=== PATIENT | female | born 1935 | race Caucasian/White ===

== ENCOUNTER 2018-12-28 16:38 | Inpatient (IN) | payer MEDICARE ==
[~2018-12-28] VITALS: Ht 154.9 cm; Wt 62.1 kg
[2018-12-28] MEDS: ALBUTEROL SULF 0.083% NEB SOLN 3 ML NEB NEB SCH (00:30)
[2018-12-28] MEDS: SODIUM CHLORIDE 0.9% 1000ML 1,000 ML IV SCH (01:45)
[~2018-12-28 16:38] MED LIST: ACETAMINOPHEN500 M1 PO; ALEVE220 M1 PO; AMLODIPINE BESYL5 MG PO; ATORVASTATIN CA20 MG; CALTRATE 600 W1 EACH; CENTRUM SILVER1 EAC1; DIOVAN160 MG PO; EXFORGE 5-3201 EACH; FISH OIL 1,2001 EACH; FLUTICASONE PRO16 GM; FUROSEMIDE40 MG PO; LATANOPROST2.5 ML; LEVOTHYROXINE75 MCG; LUMIGAN2.5 M1 OP; MILK OF MA400 MG/5 M; PROBIOTIC; [UNRECOGNIZED DRUG - OTHER]
[2018-12-28] MEDS ORDERED: ALBUTEROL/IPRATROPIUM 3 ML NEB NEB ONE (17:45)
--- NOTE | 2018-12-28 18:03 | Diagnostic Imaging Report ---
EXAMINATION: PA and lateral views of the chest. COMPARISON: August 10, 2016 CLINICAL HISTORY: Pneumonia, shortness of breath DISCUSSION: Lines/tubes: None. Lungs: Increased interstitial markings predominantly in the right lower lung. No consolidative pneumonia Pleura: No pleural effusion or pneumothorax. Heart and mediastinum: The cardiomediastinal silhouette is normal. Bones and soft tissues: No acute bony abnormalities. IMPRESSION: Probable interstitial lung disease Signed by: Dr. Francisco Robledo M.D. on 12/28/2018 6:00 PM
[2018-12-28 18:25] LABS: HEMATOCRIT 39.6 % (34.2-44.1); HEMOGLOBIN 12.6 g/dL (12.0-16.0); LYMPHOCYTES % 2.2 % (18.0-39.1); MEAN CORPUSCULAR HEMOGLOBIN 28.8 pg (28-32); MEAN CORPUSCULAR HGB CONC 31.8 g/dL (31-35); MEAN CORPUSCULAR VOLUME 90.6 fL (81-99); MONOCYTES % 0.8 % (4.4-11.3); NEUTROPHILS % 5.9 % (38.7-80.0); PLATELET COUNT 336 x10e3/uL (140-360); RED BLOOD COUNT 4.37 x10e6/uL (3.6-5.1); RED CELL DISTRIBUTION WIDTH 15.1 % (11.7-14.4)
[2018-12-28 18:26] LABS: EOSINOPHILS % 0.2 % (0.0-6.0)
[2018-12-28 18:49] LABS: ANION GAP 17.7 mmol/L (8-16); CALCIUM 9.6 mg/dL (8.4-10.2); CREATININE, SERUM 1.44 mg/dL (0.57-1.11); POTASSIUM 3.7 mmol/L (3.5-5.1)
[2018-12-28 18:50] LABS: ALBUMIN 3.1 g/dL (3.5-5.0); ALBUMIN/GLOBULIN RATIO 0.7 (0.8-2.0)
[2018-12-28] MEDS ORDERED: ALBUTEROL/IPRATROPIUM 3 ML NEB NEB NR (19:15)
--- NOTE | 2018-12-28 19:33 | NUR ---
report to tyrell
[2018-12-28] MEDS ORDERED: ACETAMINOPHEN 325 MG TAB PO NR (20:00)
[2018-12-28] MEDS ORDERED: AZITHROMYCIN 500MG/NS 250 ML 250 ML IV SCH (20:00)
[2018-12-28] MEDS ORDERED: CEFTRIAXONE SOD 1 GM/NS 50 ML 50 ML IV SCH (20:00)
[2018-12-28 20:04] LABS: ABG HCO3 25 mmol/L (23-28); ABG PCO2 31 mmHg (41-51); ABG PH 7.51 (7.31-7.41); ABG PO2 66 mmHg (80-105)
[2018-12-28] MEDS ORDERED: METHYLPREDNISOLONE SOD SUCC 125 MG/2ML VIAL IV ONE (20:15)
[2018-12-28] MEDS ORDERED: SODIUM CHLORIDE 0.9% 1000ML 1,000 ML IV ONE (20:15)
[2018-12-28] MEDS ORDERED: ACETAMINOPHEN 325 MG TAB PO PRN (20:30)
[2018-12-28] MEDS ORDERED: ONDANSETRON HCL INJ 2MG/ML 2ML 2 MG/ML VIAL IV PRN (20:30)
--- OUTSIDE RECORDS SUMMARY | 2018-12-28 20:41 | XMS REPORT ---
Author Author [facility] Address Unknown Phone Unavailable Care Team Providers Care Medical Records Technician Name Role Phone César PETIT Unavailable Unavailable Problems This patient has no known problems. Allergies, Adverse Reactions, Alerts This patient has no known allergies or adverse reactions. Medications This patient has no known medications. Results Test Description Test Time Test Comments Text Results Atomic Results Result Comments CHEST 2 VIEWS 2018-12-28 17:57:00 [place] [address] Patient Name: NELSON ROONEY MR #: [id number] : 1935 Age/Sex: 83/F Req #: [id number] Adm Physician: Ordered by: RONAN PETIT MD Report #: [id number] Location: ER Room/Bed: Procedure: [id number] DX/CHEST 2 VIEWS Exam Date: 12/28/18 Exam Time: 1750 REPORT STATUS: Signed EXAMINATION: PA and lateral views of the chest. COMP ARISON: August 10, 2016 CLINICAL HISTORY: Pneumonia, shortness of breath DISCUSSION: Lines/tubes: None. Lungs: Increased interstitial markings predominantly in the right lower lung. No consolidative pneumonia Pleura: No pleural effusion or pneumothorax. Heart and mediastinum: The cardiomediastinal silhouette is normal. Bones and soft tissues: No acute bony abnormalities. IMPRESSION: Probable interstitial lung disease Signed by: Dr. Swati Ibrahim M.D. on 12/28/2018 6:00 PM Dictated By: SWATI IBRAHIM MD 99 Transcribed By: NILA on 12/28/181799 COPY TO: RONAN PETIT MD
[2018-12-28 23:01] VITALS: BP 155/60
[2018-12-28 23:15] VITALS: BP 155/60
[2018-12-29] VITALS: BP 111/40
[2018-12-29] MEDS: METHYLPREDNISOLONE SOD SUCC 40 MG/ML VIAL 1ML IV SCH ×5 (00:24→22:00)
[2018-12-29] MEDS: IPRATROPIUM BROMIDE 0.02% 2.5 ML NEB NEB SCH ×4 (01:00→19:40)
[2018-12-29] MEDS: SODIUM CHLORIDE 0.9% 1000ML 1,000 ML IV SCH ×4 (01:45→19:56)
[2018-12-29] MEDS: ALBUTEROL SULF 0.083% NEB SOLN 3 ML NEB NEB SCH ×5 (03:30→19:40)
[2018-12-29 04:00] VITALS: BP 146/65
[2018-12-29] MEDS: LEVOTHYROXINE SODIUM 75 MCG TAB PO SCH (05:55)
[2018-12-29] MEDS ORDERED: LEVOTHYROXINE SODIUM 75 MCG TAB PO SCH ×2 (06:00→09:00)
[2018-12-29] MEDS ORDERED: LEVOTHYROXINE SODIUM 50 MCG TAB PO SCH (06:00)
[2018-12-29 06:03] LABS: BASOPHILS % 0.2 % (0.0-1.0); HEMATOCRIT 35.9 % (34.2-44.1); HEMOGLOBIN 11.6 g/dL (12.0-16.0); LYMPHOCYTES # (AUTO) 1.1 (1.0-3.2); LYMPHOCYTES % 17.4 % (18.0-39.1); MEAN CORPUSCULAR HEMOGLOBIN 29.1 pg (28-32); MEAN CORPUSCULAR HGB CONC 32.3 g/dL (31-35); MEAN CORPUSCULAR VOLUME 90.2 fL (81-99); MONOCYTES # (AUTO) 0.1 (0.2-0.8); MONOCYTES % 1.6 % (4.4-11.3); NEUTROPHILS # (AUTO) 5.1 (2.1-6.9); NEUTROPHILS % 79.1 % (38.7-80.0); PLATELET COUNT 309 x10e3/uL (140-360); RED BLOOD COUNT 3.98 x10e6/uL (3.6-5.1)
[2018-12-29 06:31] LABS: CREATINE KINASE MB 1.9 ng/mL (0-5.0)
[2018-12-29 07:11] LABS: ALBUMIN 2.6 g/dL (3.5-5.0); ALBUMIN/GLOBULIN RATIO 0.7 (0.8-2.0); CALCIUM 8.4 mg/dL (8.4-10.2); CREATININE, SERUM 1.06 mg/dL (0.57-1.11)
[2018-12-29 07:45] VITALS: BP 120/55
[2018-12-29 07:48] LABS: ANION GAP 16.6 mmol/L (8-16); POTASSIUM 3.6 mmol/L (3.5-5.1)
[2018-12-29] MEDS: LACTOBACILLUS ACIDOPHILUS CAPSULE PO SCH ×2 (08:57→08:58)
[2018-12-29] MEDS: FUROSEMIDE 40 MG TAB PO SCH (08:57)
[2018-12-29] MEDS: AMLODIPINE BESYLATE 5 MG TAB PO SCH (08:57)
[2018-12-29] MEDS: VALSARTAN 160 MG TAB PO SCH (08:58)
[2018-12-29] MEDS ORDERED: BIMATOPROST(OPTH) 2.5 ML BOTTLE OP SCH (09:00)
[2018-12-29] MEDS ORDERED: ONDANSETRON HCL 4 MG ORAL DISINTEGRATING TAB PO PRN (09:45)
--- NOTE | 2018-12-29 10:50 | NUR ---
SOCIAL WORK INITIAL ASSESSMENT Hydraulic Blocker to bedside to discuss plan of care with patient/family. CM/SW role and care transitions discussed. Anticipated discharge plan discussed along with duration of care. CM/SW discussed patients right to make decisions in care. CM/SW work hours given. Patient lives: IN HOME WITH HER Admit/Transfer: VIA ED POA/Emergency contact: AND DAUGHTER ON FILE Current/Previous Home Health: NONE PCP/Follow-up Care: Valentina MCGOVERN Current/Previous DME: [facility] Other Services: NONE Employment Status: RETIRED Areas of Concerns: WORRIED ABOUT MONEY AND COST HAVE JUST SPENT LARGE AMOUNTS OF MONEY ON [place] FOR HOME TO BE REBUILT Referral Needs: GAVE INFORMATION FOR [employer] TO ASSIST WITH LEGAL NEEDS TO ASSIST IN THE COMMUNITY Education Needs: NONE IMM/IBANEZ given and signed (if applicable): UPON ADMISSION Goal for discharge: RETURN HOME CM/SW left business card at the bedside with contact information. Name and number was also written on the patients whiteboard. Patient verbalized understanding of discussion. CM will follow-up with ongoing discharge and transition of care needs.
--- NOTE | 2018-12-29 12:38 | Diagnostic Imaging Report ---
EXAMINATION: CT scan of the chest without contrast. TECHNIQUE: Spiral CT images of the chest were performed from the lung apices to the level of the adrenal glands. No intravenous contrast was administered per referring physician request. Coronal and sagittal reformatted images were obtained. COMPARISON: 12/28/2018, CT chest 08/20/2016 report was reviewed. No images available. CLINICAL HISTORY:Cough, shortness of breath DISCUSSION: ABSENCE OF INTRAVENOUS CONTRAST DECREASES SENSITIVITY FOR DETECTION OF FOCAL LESIONS AND VASCULAR PATHOLOGY. LINES/TUBES: None. LUNGS AND AIRWAYS: Lower lung zone predominant juxtapleural coarse reticulation, and interlobular septal thickening, groundglass opacities, and bronchiectasis. The right middle and lower lobes are affected to the greatest extent. Superimposed patchy groundglass opacities with tree-in-bud nodules in the right upper and lower lobes. Filling defects in several segmental right lower lobe bronchi compatible with mucous plugging similar findings in multiple left lower lobe bronchi. PLEURA: No pneumothorax or pleural effusions. HEART AND MEDIASTINUM: Thyroid gland appears normal. Atherosclerotic calcification of the thoracic aorta, great vessel origins, and coronary arteries without ectasia or aneurysmal dilatation. Pulmonary outflow tract is of normal caliber. Heart size is normal without pericardial effusion. LYMPH NODES: No axillary, hilar, or mediastinal lymphadenopathy. Calcified right paratracheal mediastinal lymph node compatible with prior granulomatous infection. Bilateral calcified hilar lymph nodes. ABDOMEN: Dystrophic calcification in hepatic segment 8. Spleen, adrenals, and pancreas otherwise unremarkable with the exception of a small calcified splenic granuloma. BONES AND SOFT TISSUES: No osseous destructive lesions. Multilevel degenerative disc changes of the lower cervical and thoracic spine with diffuse osteopenia. No focal soft tissue abnormalities. Coarse calcifications in the left breast. IMPRESSION: Lower lung zone predominant coarse reticulation and bronchiectasis compatible with interstitial lung disease, likely NSIP, which may be idiopathic, related to underlying collagen vascular disease, or drug toxicities. Superimposed tree-in-bud and groundglass opacities in the right upper and lower lobes suggest superimposed pneumonia. Short-term follow-up CT chest (3-6 months) is suggested to document resolution. Mucous plugging/aspiration in the bilateral dependent lower lobes. Atherosclerotic vascular disease. Signed by: Dr. Maulik Cornejo M.D. on 12/29/2018 12:35 PM
[2018-12-29] MEDS: CEPACOL SORE THROAT LOZENGES PO PRN ×2 (12:46→22:00)
[2018-12-29 13:00] VITALS: BP 136/65
[2018-12-29 14:15] LABS: CREATINE KINASE MB 3.5 ng/mL (0-5.0)
[2018-12-29 15:45] VITALS: BP 157/65
--- NOTE | 2018-12-29 18:57 | Consultation ---
DATE OF CONSULTATION: 12/29/2018 CARDIAC CONSULTATION REASON FOR CONSULTATION: Severe shortness of breath. HISTORY OF PRESENT ILLNESS: An 83-year-old lady, who is now with longstanding history of hypertension, peripheral arterial vascular disease, hypercholesteremia, positive family history of coronary artery disease, and mild renal insufficiency. The patient does have long-standing history of shortness of breath on exertion and easy fatigability. Her cardiac catheterization, which was done on 12/30/2017 showed mild CAD and this was done because of her severe shortness of breath. In fact, couple of years ago or so, she was seen by Pulmonary Service, Dr. Chan and she had a bronchoscopy and right lung biopsy. At that time, she was diagnosed with bronchiectasis effecting mainly the right lung. The patient also noted to have peripheral arterial vascular disease, status post PCI and intervention of her right lower extremity on 07/03/2018. This was for the right superficial femoral and right popliteal arteries. The patient's main symptoms are shortness of breath on exertion progressively worse. For the last 3-4 weeks, she is unable to breathe and she is having continuous cough. She does have severe shortness of breath. She was seen by Dr. Ortiz Bowie, her PCP. She had antibiotics with chest x-ray, subsequent CT scan, and she continued to have severe shortness of breath and cough, she came to the emergency room. Her chest x-ray showed pulmonary fibrosis of the right lung mainly. She is supposed to have CT scan to check on that. The patient's main symptoms are repeated cough, shortness of breath on exertion, and easy fatigability. In the past, she was advised by Pulmonary Service GERD to be on large dose of Protonix, but she is not taking it. CURRENT MEDICATIONS: Aspirin 81 mg a day, Plavix 75 mg a day, metoprolol succinate 25 mg a day, valsartan 320 mg a day, amlodipine 5 mg a day, Lasix 20 mg a day, levothyroxine 75 mcg a day, multivitamins, and duloxetine 30 mg a day. ALLERGIES: DEMEROL, ASPIRIN, MYRBETRIQ, AND STATINS. PAST MEDICAL HISTORY: 1. Status post peripheral angiogram of the right superficial femoral and right popliteal arteries on 06/22/2018. 2. Status post stenting of the right distal superficial femoral artery in 2017. 3. Hypertension. 4. Hypothyroidism. 5. Hypercholesteremia. 6. Varicose veins. 7. Chronic lung disease. 8. Migraine. 9. Degenerative joint disease of the back "herniated disk of the back.". 10. Hay fever. 11. Chronic constipation and irritable bowel syndrome. 12. Palpitation. 13. Glaucoma. 14. History of H pylori. 15. Mild renal insufficiency. 16. Appendectomy. 17. Stomach surgery. 18. Hysterectomy. 19. Cystocele repair. SOCIAL HISTORY: She is . She is a nonsmoker. She is non-alcohol drinker. REVIEW OF SYSTEMS: GENERAL: Weakness with failure to thrive. HEENT: Migraines, headache, congestion. PULMONARY: Shortness of breath on minimal activity. CARDIAC: No angina, mainly severe shortness of breath on exertion. GI: Remarkable for severe GERD symptoms and dysphagia, constipation, right lower quadrant pain chronically. HEMATOLOGY: No easy bruising or bleeding. : Increased frequency and incontinence. MUSCULOSKELETAL: Back pain, knee pain, and muscle aches. PERIPHERAL VASCULAR: No claudication, but leg edema. NEUROLOGICAL: Awake, alert, and oriented. PSYCHIATRIC: There are no localized symptoms. PHYSICAL EXAMINATION: VITAL SIGNS: Height of 5 feet 2 inches, weight of 144 pounds, blood pressure 130/80, heart rate 70, and respiratory rate 18. HEENT: Pupils are reactive. NECK: No elevation of jugular venous pulsation. CHEST: Decreased lung expansion consistent with chronic lung disease with coarse crackles. HEART: PMI 5th intercostal space. Normal first and second heart sounds. ABDOMEN: Soft with good bowel sounds. EXTREMITIES: No signs of clubbing. No edema. LABORATORY DATA: EKG showing sinus tachycardia, low voltage, nonspecific ST changes. White blood cell count of 9.2, hemoglobin 12.6, hematocrit 40%, and platelet count of ABG showed a pH of 7.51, pCO2 of 51, and pO2 of 66. normal. BUN of 16 and creatinine of 1.06. Chest x-ray, changes in the right lower base. IMPRESSION AND PLAN: 1. Chronic lung disease, suspicious for bronchiectasis and pulmonary fibrosis. 2. Severe gastroesophageal reflux disease, probably playing a role. 3. Shortness of breath on exertion, which is very severe. 4. Chronic cough. 5. Severe peripheral arterial vascular disease. 6. Mixed hyperlipidemia. 7. Varicose veins. 8. Hypothyroidism. Cardiac chino, my recommendation would be as follow: 1. Checking BMP. 2. Checking an echocardiogram. 3. Continuation of her small dose of diuretics as well as Plavix. 4. CT scan of chest is in progress. Pulmonary will evaluate the patient. Depending on the results of this initial investigations and the patient's course, further steps to be done. MD EMERALD Perez/MODL /[id number]
[2018-12-29 20:00] VITALS: BP 139/54
[2018-12-29] MEDS: BIMATOPROST(OPTH) 2.5 ML BOTTLE OP SCH (20:31)
--- NOTE | 2018-12-29 20:32 | Consultation ---
DATE OF CONSULTATION: 12/29/2018 PULMONARY MEDICINE CONSULTATION REASON FOR REFERRAL: Interstitial lung disease. HISTORY OF PRESENT ILLNESS: Ms. Jamil is a pleasant 83-year-old female with interstitial lung disease. The patient with a pulmonary history of excessive bronchitis spells when she was a young girl starting at age 7 that she can remember. The patient also had slightly increased cough compared to other people, but she was never diagnosed with any special condition. Later on in about 2014, she had repeat evaluation where her lung condition was noted to be probably with some chronicity. The patient with a CT chest in our computer system from August 20, 2016, demonstrating significant/moderate bronchiectasis tubular. The patient with faint reticulation and cystic spaces being formed usually in subpleural manner at that time. The patient was having worsening cough recently. The patient came to emergency room. CT chest demonstrated same coarse reticulation bronchiectasis, but there is increased ground-glass opacities. I am consulted. No history of asthma. There are intermittent allergies. She did allergy prick testing in 1960s, which was positive. No overt GERD, but she did get a trial of Nexium with no significant improvement that she can site. Her cough is dry. She lives with 3 cats. No other clear exposures that she can think of. PAST MEDICAL HISTORY: 1. Hypertension. 2. Hypothyroidism. 3. Hyperlipidemia. 4. High cholesterol. 5. Glaucoma. 6. IBS. 7. CKD. 8. PVD. 9. Appendectomy. 10. Back surgery. 11. Hernia repair. 12. Hysterectomy. 13. Tonsillectomy. MEDICATIONS: Medicine list reviewed per the chart record. ALLERGIES: 1. CHLORPHENIRAMINE. 2. DEXTROMETHORPHAN. 3. EPINEPHRINE. 4. ACETAMINOPHEN. 5. ASPIRIN. 6. CODEINE. 7. GUAIFENESIN. SOCIAL HISTORY: No smoking. No drinking. No drugs. The patient lives with . FAMILY HISTORY: Noncontributory. REVIEW OF SYSTEMS: GENERAL: No weight changes. OPHTHALMOLOGIC: No double vision. ENT: No mouth ulcers. PULMONARY: No asthma. No hemoptysis. CARDIAC: No heart attacks. GI: No constipation. GENITOURINARY: No blood in urine. NEUROLOGIC: No seizures. PSYCHIATRIC: No depression. MUSCULOSKELETAL: Mild arthritis, osteoarthritis kind she says. PSYCHIATRIC: No depression. OBJECTIVE: VITAL SIGNS: Afebrile, vital signs noted and reviewed per the chart record. GENERAL: In no acute distress, but intermittent cough noted. HEENT: Normocephalic and atraumatic. NECK: Supple. Throat midline. LUNGS: Bilateral air entry, few rhonchi, [id number]. CARDIOVASCULAR: S1, S2. No murmurs, rubs, or gallops. ABDOMEN: Soft and nontender. EXTREMITIES: No clubbing, no cyanosis, no edema. INTEGUMENT: No rash. No purpura. LABORATORY DATA: 16 BUN and 1.1 creatinine. 3.6 potassium and 6.4 white count. 36 hematocrit and 209 platelets. IMPRESSION: 1. Bronchiectatic lung disease with exacerbation. 2. Bilateral pneumonitis either progression of chronic interstitial lung disease or possible superimposed infection such as mycobacteria or other. 3. Intermittent allergies. 4. Possible gastroesophageal reflux disease, although no high evidence. 5. Reported possible mild exposure to asbestos with fall from the roof. 6. Hypothyroidism. 7. Hyperlipidemia. 8. Hypertension. 9. Irritable bowel syndrome. 10. Chronic kidney disease. 11. Peripheral vascular disease. PLAN AND RECOMMENDATIONS: Treat for acute pneumonia for now. Check sputum culture. Check AFB sputum culture. Our review from the outside records from other close hospital. The patient had a bronchoscopy in the past, which reportedly did not have findings that contributed to diagnosis. This condition is worsening over the last 3 years, so the patient will need close follow up. Given some of the issues beginning when she was young, it could be reasonable to think about alpha-1 antitrypsin levels or cystic fibrosis evaluation for mild phenotype. Antibiotics for now. Thank you very much Dr. Morel for allowing me a chance to participate in care of Ms. Jamil. Do not hesitate to contact me if I can help in any way. MD JOVANA Orlando/MYKE /[id number]
[2018-12-29] MEDS ORDERED: RESTASIS1 EACH OP (20:33)
[2018-12-29] MEDS: CYCLOSPORINE OP SCH (21:00)
[2018-12-30] VITALS (8 sets, daily range): BP systolic 103–151; BP diastolic 38–68
[2018-12-30] MEDS: ALBUTEROL SULF 0.083% NEB SOLN 3 ML NEB NEB SCH ×7 (00:15→19:00)
[2018-12-30] MEDS: METHYLPREDNISOLONE SOD SUCC 40 MG/ML VIAL 1ML IV SCH ×4 (00:30→17:48)
[2018-12-30] MEDS: IPRATROPIUM BROMIDE 0.02% 2.5 ML NEB NEB SCH ×4 (00:30→19:00)
[2018-12-30] MEDS: SODIUM CHLORIDE 0.9% 1000ML 1,000 ML IV SCH (02:14)
[2018-12-30] MEDS: LEVOTHYROXINE SODIUM 75 MCG TAB PO SCH (06:23)
--- NOTE | 2018-12-30 06:31 | NUR ---
Dr. Morel requesting consult for Dr. Arana for dysphagia. Spoke to Dr. Arana, he will see patient Tuesday.
[2018-12-30] MEDS: AZITHROMYCIN 500MG/NS 250 ML 250 ML IV SCH (08:21)
[2018-12-30] MEDS: CEFTRIAXONE SOD 1 GM/NS 50 ML 50 ML IV SCH (08:21)
[2018-12-30] MEDS: FUROSEMIDE 40 MG TAB PO SCH (08:23)
[2018-12-30] MEDS: LACTOBACILLUS ACIDOPHILUS CAPSULE PO SCH (08:23)
[2018-12-30] MEDS: AMLODIPINE BESYLATE 5 MG TAB PO SCH (08:23)
[2018-12-30] MEDS: VALSARTAN 160 MG TAB PO SCH (08:24)
[2018-12-30] MEDS: CYCLOSPORINE OP SCH ×2 (08:32→20:00)
[2018-12-30] MEDS ORDERED: BIMATOPROST(OPTH) 2.5 ML BOTTLE OP SCH (09:00)
--- NOTE | 2018-12-30 17:22 | Progress Note ---
DATE: 12/30/2018 Pulmonary Medicine Progress Note SUBJECTIVE: Ms. Jamil was seen and examined at bedside. The patient had medical records reviewed. Previous bronchoscopy done with low cellularity white cells, yet 25% lymphocytes were noted with no large leukocyte predominant PMNs. The patient . The patient is eating, although she has worst breathing she says and does cough a lot. REVIEW OF SYSTEMS: No headaches, no bleeding. OBJECTIVE: VITAL SIGNS: Afebrile. Vital signs noted per the chart record. GENERAL: No acute distress. Alert and calm. HEENT: Normocephalic, atraumatic. NECK: Supple. Throat midline. LUNGS: Bilateral air entry with coarse rhonchi bilaterally. CARDIOVASCULAR: S1, S2. No murmurs, rubs, or gallops. ABDOMEN: Soft, nontender. EXTREMITIES: No clubbing, no cyanosis. There is no edema. INTEGUMENT: No rash or purpura. LABORATORY DATA: 3.6 potassium, 1.0 creatinine. 6 white count, 35 hematocrit, 309 platelets. IMPRESSION AND PLAN: 1. Bilateral pneumonitis. 2. Underlying chronic interstitial lung disease. 3. History of bronchitis, multiple during her . 4. Weakness and debility. 5. for acute bacterial pneumonia. Await sputum for bacteria. Await mycobacterial sputum specimens. If the patient does not get better on conventional antibiotics, we will consider repeat bronchoscopy for infection versus surgical lung biopsy. A CAT scan clearly showed progression of her lung disease. We will follow along closely. MD JOVANA Orlando/MODL /[id number]
[2018-12-30] MEDS ORDERED: CEFTRIAXONE SOD 1 GM/NS 50 ML 50 ML IV SCH (20:00)
[2018-12-30] MEDS: BIMATOPROST(OPTH) 2.5 ML BOTTLE OP SCH (20:36)
[2018-12-30] MEDS ORDERED: AZITHROMYCIN 500MG/NS 250 ML 250 ML IV SCH (21:00)
[2018-12-31] VITALS (8 sets, daily range): BP systolic 121–167; BP diastolic 52–74
[2018-12-31] MEDS: METHYLPREDNISOLONE SOD SUCC 40 MG/ML VIAL 1ML IV SCH ×4 (00:10→17:12)
[2018-12-31] MEDS: IPRATROPIUM BROMIDE 0.02% 2.5 ML NEB NEB SCH ×4 (00:15→18:50)
--- NOTE | 2018-12-31 02:24 | Progress Note ---
DATE: SUBJECTIVE: No new complaints overnight, still has cough and congestion. OBJECTIVE: VITAL SIGNS: Temperature 98.0, pulse 80, blood pressure 150/64, saturations 99%. GENERAL: No apparent distress. CARDIOVASCULAR: Regular rate and rhythm. LUNGS: Rhonchi ABDOMEN: Good bowel sounds. Soft, nontender. EXTREMITIES: No clubbing or cyanosis. NEUROLOGIC: Nonfocal. ASSESSMENT AND PLAN: 1. Pneumonia secondary to bronchiectasis. Continue with antibiotics per Pulmonary. 2. Interstitial lung disease. Continue with current care. 3. Dysphagia. GI has been consulted. 4. Hypertension. Continue with current care and monitoring. 5. Hypothyroidism. Continue with her medication. 6. Diabetes. Continue with current care. Please see hospital chart for details. MD FAZAL Solis/MYKE /[id number]
[2018-12-31] MEDS: ALBUTEROL SULF 0.083% NEB SOLN 3 ML NEB NEB SCH ×6 (03:00→18:50)
--- NOTE | 2018-12-31 03:29 | NUR ---
Received patient from day nurse, patient is alert and oriented x 3, introduced self to patient and patient instructed to call nurses for any assistance needed, patient verbalized understanding, safety and fall precautions maintained as per hospital protocol: bed in lowest position and locked, needed items beside bed and call coppola placed close to patient, patient instructed to use it call nurses for any assistance needed, patient verbalized understanding. patient is currently stable will continue to monitor. 2000: patient is self turn encouraged to turn. 2200: patient is stable. 12/31/18: 0000: patient is stable, vitals stable. 0200: patient is stable.
[2018-12-31] MEDS: LEVOTHYROXINE SODIUM 75 MCG TAB PO SCH (06:00)
[2018-12-31] MEDS: CLOPIDOGREL BISULFATE 75 MG TAB PO SCH (08:54)
[2018-12-31] MEDS: CYCLOSPORINE OP SCH ×2 (08:54→20:00)
[2018-12-31] MEDS: AMLODIPINE BESYLATE 5 MG TAB PO SCH (08:54)
[2018-12-31] MEDS: LACTOBACILLUS ACIDOPHILUS CAPSULE PO SCH (08:54)
[2018-12-31] MEDS: CEFTRIAXONE SOD 1 GM/NS 50 ML 50 ML IV SCH (08:54)
[2018-12-31] MEDS: AZITHROMYCIN 500MG/NS 250 ML 250 ML IV SCH (08:54)
[2018-12-31] MEDS: VALSARTAN 160 MG TAB PO SCH (08:54)
[2018-12-31] MEDS: FUROSEMIDE 40 MG TAB PO SCH (08:54)
[2018-12-31] MEDS: BIMATOPROST(OPTH) 2.5 ML BOTTLE OP SCH (21:22)
--- NOTE | 2018-12-31 23:42 | Progress Note ---
DATE: 12/31/2018 Pulmonary Medicine Progress Note SUBJECTIVE: Ms. Jamil was seen and examined at bedside. She continues to have slow progress. She still retains in a significant cough. Cough still is little bothersome. Her abdomen is sore from coughing. She reports multiple bowel movements every time she urinates. An 89% oxygen saturation at this time. REVIEW OF SYSTEMS: No headaches, no bleeding. OBJECTIVE: VITAL SIGNS: Afebrile, vital signs reviewed per the chart record. GENERAL: In no acute distress, alert and calm, intermittent cough. HEENT: Normocephalic, atraumatic. NECK: Supple. Throat midline. LUNGS: Bilateral air entry, few coarse rhonchi, rare wheeze. CARDIOVASCULAR: S1, S2. No murmurs, rubs, or gallops. ABDOMEN: Soft, nontender. EXTREMITIES: No clubbing, no cyanosis. There is no edema. INTEGUMENT: No rash or purpura. IMPRESSION AND PLAN: 1. Bilateral pneumonia, evolving. 2. Underlying chronic interstitial lung disease. 3. Bronchiectasis, [id number]. 4. Reported possible gastroesophageal reflux disease. 5. Intermittent allergies. 6. Chronic kidney disease. We will check MER, rheumatoid factor, IgG level, serologic assessment for some etiologies for this interstitial lung disease. We still await sputum to be sent in and I discuss with charge nurse to help finalize this admission. Continue bronchodilators. Antibiotics. Some steroids. Continue to follow her oxygen. The patient fails to improve on therapy and has no readily available diagnosis, consideration for bronchoscopy versus surgical lung biopsy will occur. MD JOVANA Orlando/MODL /[id number]
[2019-01-01] VITALS (9 sets, daily range): BP systolic 136–170; BP diastolic 61–90
[2019-01-01] MEDS: METHYLPREDNISOLONE SOD SUCC 40 MG/ML VIAL 1ML IV SCH ×3 (00:22→20:56)
[2019-01-01] MEDS: ALBUTEROL SULF 0.083% NEB SOLN 3 ML NEB NEB SCH ×5 (03:00→19:40)
--- NOTE | 2019-01-01 05:02 | NUR ---
Received patient from day nurse, patient is alert and oriented x 3, introduced self to patient and patient instructed to call nurses for any assistance needed, patient verbalized understanding, safety and fall precautions maintained as per hospital protocol: bed in lowest position and locked, needed items beside bed and call coppola placed close to patient, patient instructed to use it call nurses for any assistance needed, patient verbalized understanding. patient was made aware about the need fpor sputum specimen, patient states she is having dry cough but will try to get nursing the sputum, patient is currently stable will continue to monitor. 2000: patient is self turn encouraged to turn. 2200: patient is stable. 12/31/18: 0000:During neb treatment, rn encouraged patient to give some sputum, she stated she does not have any, charge nurse was made aware, container for sputum is close to patient and encouraged to place it in the cup, patient is stable, vitals stable. 0200: patient is stable.
[2019-01-01 05:47] LABS: BASOPHILS # (AUTO) 0.1 (0.0-0.1); BASOPHILS % 0.5 % (0.0-1.0); HEMATOCRIT 37.2 % (34.2-44.1); HEMOGLOBIN 11.7 g/dL (12.0-16.0); LYMPHOCYTES # (AUTO) 2.4 (1.0-3.2); LYMPHOCYTES % 11.8 % (18.0-39.1); MEAN CORPUSCULAR HEMOGLOBIN 28.7 pg (28-32); MEAN CORPUSCULAR HGB CONC 31.5 g/dL (31-35); MEAN CORPUSCULAR VOLUME 91.2 fL (81-99); MONOCYTES # (AUTO) 0.6 (0.2-0.8); MONOCYTES % 2.7 % (4.4-11.3); NEUTROPHILS % 79.1 % (38.7-80.0); PLATELET COUNT 454 x10e3/uL (140-360); RED BLOOD COUNT 4.08 x10e6/uL (3.6-5.1); RED CELL DISTRIBUTION WIDTH 15.2 % (11.7-14.4)
[2019-01-01] MEDS: LEVOTHYROXINE SODIUM 75 MCG TAB PO SCH (06:10)
[2019-01-01 06:21] LABS: ALBUMIN 3.1 g/dL (3.5-5.0); ALBUMIN/GLOBULIN RATIO 0.8 (0.8-2.0); ANION GAP 18.2 mmol/L (8-16); CALCIUM 9.2 mg/dL (8.4-10.2); CREATININE, SERUM 1.13 mg/dL (0.57-1.11); POTASSIUM 3.2 mmol/L (3.5-5.1)
[2019-01-01] MEDS: IPRATROPIUM BROMIDE 0.02% 2.5 ML NEB NEB SCH ×4 (07:00→19:40)
--- NOTE | 2019-01-01 07:02 | NUR ---
patient endorsed to day nurse Yoana for continuity of care. plx follow up with sputum for afb, thanks.
[2019-01-01] MEDS: AMLODIPINE BESYLATE 5 MG TAB PO SCH (07:33)
[2019-01-01] MEDS: CEFTRIAXONE SOD 1 GM/NS 50 ML 50 ML IV SCH (07:33)
[2019-01-01] MEDS: VALSARTAN 160 MG TAB PO SCH (07:33)
[2019-01-01] MEDS: CLOPIDOGREL BISULFATE 75 MG TAB PO SCH (07:34)
[2019-01-01] MEDS: LACTOBACILLUS ACIDOPHILUS CAPSULE PO SCH ×2 (07:34→17:44)
[2019-01-01] MEDS: FUROSEMIDE 40 MG TAB PO SCH (07:36)
[2019-01-01] MEDS: CEPACOL SORE THROAT LOZENGES PO PRN (07:36)
[2019-01-01] MEDS: AZITHROMYCIN 500MG/NS 250 ML 250 ML IV SCH (08:30)
[2019-01-01] MEDS: CYCLOSPORINE OP SCH ×2 (08:30→20:00)
[2019-01-01 08:48] LABS: ANISOCYTOSIS SLIGHT; LYMPHOCYTES % (MANUAL) 11 % (19-48); METAMYELOCYTES % (MANUAL) 1 % (0-0); MONOCYTES % (MANUAL) 5 % (3.4-9.0); MYELOCYTES % (MANUAL) 1 % (0-0); NEUTROPHILS % (MANUAL) 82 % (40-74); PLATELET ESTIMATE SLIGHTLY INCREASED; PLATELET MORPHOLOGY COMMENT NORMAL
[2019-01-01] MEDS ORDERED: POTASSIUM CHLORIDE 20 MEQ TAB CR PO NR (11:00)
--- NOTE | 2019-01-01 11:44 | Diagnostic Imaging Report ---
Examination: Single AP view of the chest. COMPARISON: 12/28/2018, CT chest 12/29/2018 INDICATION: Pneumonia DISCUSSION: Lungs are well-inflated. Patchy bilateral lower lobe airspace opacities are unchanged. Stable cardiomediastinal contour. No pulmonary edema. No new consolidation or effusion. No acute osseous abnormality. IMPRESSION: Stable chest relative to 12/28/2018. No new consolidation. For further description of probable interstitial lung disease and superimposed atypical infection refer to CT chest 12/29/2018. Signed by: Dr. Maulik Cornejo M.D. on 01/01/2019 11:40 AM
--- NOTE | 2019-01-01 12:24 | Progress Note ---
DATE: 01/01/2019 Pulmonary Medicine Progress Note SUBJECTIVE: Ms. Jamil was seen and examined at bedside. The patient continues to have slow progress. She has persistent intermittent cough. The patient is being seen by nursing staff. A consistent cough often when eating or drinking. The patient denies having swallow mechanism, formally evaluated by a speech therapist in the past. Her oxygenation has improved to 98% saturation on room air FiO2. REVIEW OF SYSTEMS: No headaches, no bleeding. OBJECTIVE: VITAL SIGNS: Afebrile, vital signs noted per the chart record. GENERAL: No distress, calm, mildly anxious. HEENT: Normocephalic, atraumatic. NECK: Supple. Throat midline. LUNGS: Bilateral air entry, few rhonchi. CARDIOVASCULAR: S1, S2. No murmurs, rubs, or gallops. ABDOMEN: Soft, nontender. EXTREMITIES: No clubbing, no cyanosis. There is no edema. INTEGUMENT: No rash or purpura. LABORATORY DATA: 3.2 potassium and 1.1 creatinine. 20 white count, 37 hematocrit, and 454 platelets. IMPRESSION AND PLAN: 1. Bronchiectatic lung disease with exacerbation. 2. Bilateral pneumonitis, progressed from previous CT scan. 3. Intermittent allergies. 4. Possible gastroesophageal reflux disease, although mostly asymptomatic if so. 5. Hypothyroidism. 6. Hyperlipidemia, hypertension, irritable bowel, chronic kidney disease, and peripheral vascular disease. 7. Hypokalemia. 8. Worsening leukocytosis. We will decrease steroids today. Continue bronchodilators. Give some potassium supplement. Repeat chest x-ray to be requested to ensure the pneumonia isn't continued to worsen. Sputum was finally submitted to the lab today. We await this among other tests for consideration of need for early invasive lung biopsy which can be considered for surgical evaluation given the patient already had a bronchoscopy in the past. We will follow along closely. Repeat white count tomorrow. MD JOVANA Orlando/MODL /[id number]
[2019-01-01] MEDS ORDERED: POTASSIUM CHLORIDE 20MEQ/15ML UDC PO ONE (15:00)
--- NOTE | 2019-01-01 15:19 | Diagnostic Imaging Report ---
EXAM: Modified barium swallow with Speech Pathologist INDICATION: ^patient coughing with medicaitons and food ^20190101 ^1015 COMPARISON: None available. RADIATION DOSE: Fluoroscopy Time: 2 min Dose (Kerma) Area Product: 2.14 Gycm2 Air Kerma (AK) value has been reviewed. It is below the limits set by the Radiation Protocol Committee (RPC) committee. FINDINGS: See impression IMPRESSION: Laryngeal penetration with thin liquids only. Trace silent aspiration with thin liquids without use of a chin tuck maneuver. Refer to speech pathology report for further details and dietary recommendations. Signed by: Dr. Maulik Cornejo M.D. on 01/01/2019 3:16 PM
--- NOTE | 2019-01-01 16:45 | NUR ---
Called Dr. Moeller, made aware radiologist recommending hydration pre/post CT scan received orders to hold on CT scan.
[2019-01-01 17:43] LABS: HEMATOCRIT 39.9 % (34.2-44.1); HEMOGLOBIN 12.1 g/dL (12.0-16.0); LYMPHOCYTES # (AUTO) 3.2 (1.0-3.2); LYMPHOCYTES % 12.7 % (18.0-39.1); MEAN CORPUSCULAR HEMOGLOBIN 28.4 pg (28-32); MEAN CORPUSCULAR HGB CONC 30.3 g/dL (31-35); MEAN CORPUSCULAR VOLUME 93.7 fL (81-99); MONOCYTES # (AUTO) 1.1 (0.2-0.8); MONOCYTES % 4.6 % (4.4-11.3); NEUTROPHILS # (AUTO) 18.4 (2.1-6.9); NEUTROPHILS % 73.9 % (38.7-80.0); PLATELET COUNT 307 x10e3/uL (140-360); RED BLOOD COUNT 4.26 x10e6/uL (3.6-5.1); RED CELL DISTRIBUTION WIDTH 15.4 % (11.7-14.4)
[2019-01-01] MEDS: HYOSCYAMINE 0.375 MG TABCR PO SCH (17:44)
[2019-01-01] MEDS: SUCRALFATE 1 GM/10 ML SUSP NG SCH ×2 (17:44→20:56)
[2019-01-01] MEDS: BIMATOPROST(OPTH) 2.5 ML BOTTLE OP SCH (20:00)
[2019-01-01 20:58] LABS: BILIRUBIN,URINE NEGATIVE (NEGATIVE); CLARITY,URINE SL CLOUDY (CLEAR); COLOR,URINE YELLOW (YELLOW); KETONES,URINE NEGATIVE (NEGATIVE); LEUKOCYTE ESTERASE ,URINE NEGATIVE (NEGATIVE); NITRITE,URINE NEGATIVE (NEGATIVE); PROTEIN,URINE DIPSTICK TRACE (NEGATIVE); URINE UROBILINOGEN 0.2 mg/dL (0.2 - 1)
[2019-01-01 21:09] LABS: BACTERIA,URINE MODERATE /HPF; EPITHELIAL CELLS,URINE MODERATE /LPF; HYALINE CASTS 0-1 (0-1)
--- NOTE | 2019-01-01 23:26 | Consultation ---
DATE OF CONSULTATION: HISTORY OF PRESENT ILLNESS: Ms. Jamil is a very old patient of mine. She is 83-year-old now, known her for many years. She carries history of glaucoma, hypertension, hypothyroidism, peripheral vascular disease, coronary artery disease, mild renal insufficiency, bronchiectasis by Dr. Chan. Diagnosed also recently according to the patient with pulmonary fibrosis. She had cardiac cath by Dr. Gleason in 2018, was showing peripheral vascular disease. I was asked to see her for evaluation of her dysphagia. Last time she came to my office with her dysphagia was back in 2016. She had an upper endoscopy back then in which achalasia was raised as a possible diagnosis. However, no appointment after that by patient. She was supposed to see me in six weeks. She presented to the emergency room when she started having short of breath and severe coughing, diagnosed with pneumonia and while she is in the hospital, I was asked to see her for evaluation of dysphagia for both liquid and solid. She has not lost weight. She does not vomit blood. She has not seen any blood in stool. She was evaluated today by modified barium swallow, Speech Therapy with findings showing trace of liquid aspiration, mild and suggested mechanical soft diet with thin liquid as therapy in addition to speech therapy worked with her to improve her swallowing mechanism. No barium swallow done today. Also the patient noted that since they started her on antibiotic, she has been having explosive diarrhea, but no bleeding. She normally is constipated. She has been on milk of magnesia for many years and also complaining of abdominal pain mainly in both lower and left inguinal area. She said this is only associated with severe coughing as she has been doing lately. Otherwise, she does not feel the pain. No nausea. No vomiting. No chills. No fever. In the past several weeks she started having severe diarrhea. I am not sure if or when the Clostridium difficile evaluation was checked. She does not have any blood in the stool. In addition, she always complains of acid reflux symptom, which she takes "[id number] Nexium for." PAST SURGICAL HISTORY: Tonsillectomy, appendectomy, hysterectomy, back surgery, hernia repair, inguinal, bladder suspension. She had also peripheral angiogram done by Dr. Gleason, showed right superficial femoral stenosis and right popliteal stenosis and the patient also had stent placed. ALLERGIES: TO CODEINE, MEPERIDINE, ACETAMINOPHEN, ASPIRIN, CHLORPHENIRAMINE, EPINEPHRINE, GUAIFENESIN, DEXTROMETHORPHAN. MEDICATIONS: She is on , Lasix, Plavix, ceftriaxone, and Solu-Medrol. LABORATORY TEST: Today white cell count is 20,000, hemoglobin 11, hematocrit 37, platelets 454. BUN 30, creatinine 1.13. Her GFR is 46. Albumin 3.1. Liver function normal. Stool occult negative. Her chest x-ray showed stable chest relative to earlier x-ray done on December 28 and probable interstitial lung disease, superimposed atypical infection. IMPRESSION: Several medical issues; first, for her dysphagia, last upper endoscopy was in 2016. Right now, we cannot repeat her endoscopy because she is on Plavix. I will do barium swallow. I have encouraged to follow up the speech therapist recommendation. I will start her on proton pump inhibitor. I will start her for couple of days on Carafate. As far as the diarrhea, we will check her thyroid function test. For her trouble swallowing, we get barium swallow as well. We are going to get also for her liquid stool beside TSH, stool for Clostridium difficile, ova and parasite, culture and sensitivity, fecal leukocyte and calprotectin. We will start her on probiotic. The patient tested the stool occult negative, no need for endoscopy at this point, I will start her on probiotic. As far as the increased white cell count, I am not sure the etiology could be related to steroid. We will do blood culture, urinalysis, stool and at one point, we will hold the Plavix if needed to do upper endoscopy. If the upper barium swallow came showing possible achalasia, we [facility] for [facility] evaluation. Reg Arana MD RD/MYKE /[id number]
[2019-01-02 00:05] VITALS: BP 158/75
[2019-01-02] MEDS: IPRATROPIUM BROMIDE 0.02% 2.5 ML NEB NEB SCH (00:10)
[2019-01-02] MEDS: ALBUTEROL SULF 0.083% NEB SOLN 3 ML NEB NEB SCH ×2 (00:10→03:25)
[2019-01-02 04:27] VITALS: BP 148/80
[2019-01-02] MEDS: LEVOTHYROXINE SODIUM 75 MCG TAB PO SCH (05:39)
[2019-01-02 05:44] LABS: BASOPHILS # (AUTO) 0.2 (0.0-0.1); BASOPHILS % 0.8 % (0.0-1.0); HEMATOCRIT 34.3 % (34.2-44.1); HEMOGLOBIN 11.1 g/dL (12.0-16.0); LYMPHOCYTES # (AUTO) 2.7 (1.0-3.2); LYMPHOCYTES % 13.6 % (18.0-39.1); MEAN CORPUSCULAR HEMOGLOBIN 28.8 pg (28-32); MEAN CORPUSCULAR HGB CONC 32.4 g/dL (31-35); MONOCYTES # (AUTO) 0.9 (0.2-0.8); MONOCYTES % 4.6 % (4.4-11.3); NEUTROPHILS # (AUTO) 14.2 (2.1-6.9); NEUTROPHILS % 71.3 % (38.7-80.0); PLATELET COUNT 411 x10e3/uL (140-360); RED BLOOD COUNT 3.86 x10e6/uL (3.6-5.1); RED CELL DISTRIBUTION WIDTH 15.1 % (11.7-14.4)
[2019-01-02 06:12] LABS: MEAN CORPUSCULAR VOLUME 88.9 fL (81-99)
--- NOTE | 2019-01-02 06:52 | NUR ---
Report given to EVA Lees,walking round done.
[2019-01-02] MEDS: CEFTRIAXONE SOD 1 GM/NS 50 ML 50 ML IV SCH (07:14)
[2019-01-02] MEDS: SUCRALFATE 1 GM/10 ML SUSP NG SCH ×3 (07:30→15:31)
[2019-01-02 07:41] VITALS: BP 164/65
[2019-01-02] MEDS: CYCLOSPORINE OP SCH (07:43)
--- NOTE | 2019-01-02 07:46 | NUR ---
Placed call to Dr. Gleason, made him aware that patient non-complaint with telemetry and took it off. Received orders to discontinue telemetry.
[2019-01-02 09:00] VITALS: BP 164/65
[2019-01-02] MEDS: LACTOBACILLUS ACIDOPHILUS CAPSULE PO SCH ×3 (09:00→16:39)
[2019-01-02] MEDS ORDERED: PANTOPRAZOLE 40 MG 10ML VIAL IV SCH (09:00)
[2019-01-02] MEDS: AZITHROMYCIN 500MG/NS 250 ML 250 ML IV SCH (09:38)
[2019-01-02] MEDS: METHYLPREDNISOLONE SOD SUCC 40 MG/ML VIAL 1ML IV SCH (09:38)
[2019-01-02] MEDS: AMLODIPINE BESYLATE 5 MG TAB PO SCH (09:47)
[2019-01-02] MEDS: CLOPIDOGREL BISULFATE 75 MG TAB PO SCH (09:47)
[2019-01-02] MEDS: HYOSCYAMINE 0.375 MG TABCR PO SCH ×2 (09:48→16:39)
[2019-01-02] MEDS: FUROSEMIDE 40 MG TAB PO SCH (09:50)
[2019-01-02] MEDS: VALSARTAN 160 MG TAB PO SCH (09:50)
[2019-01-02 12:06] VITALS: BP 154/74
[2019-01-02] MEDS ORDERED: FLUTICASONE PRO16 GM (12:10)
[2019-01-02] MEDS ORDERED: PREDNISONE10 MG PO (12:10)
[2019-01-02] MEDS ORDERED: Trelegy Ellipta (12:10)
[2019-01-02] MEDS ORDERED: PROAIR HFA INH8.5 GM INH (12:10)
[2019-01-02] MEDS ORDERED: COMP-AIR NEBUL1 EACH IH (12:15)
[2019-01-02] MEDS ORDERED: ALBUTEROL2.5 MG/3 M INH (12:15)
[2019-01-02] MEDS ORDERED: NEBULIZER COMPRESSOR INH (12:21)
--- NOTE | 2019-01-02 14:16 | Diagnostic Imaging Report ---
Exam: Barium swallow History: Trace aspiration on prior modified barium swallow. Comparison: Modified barium swallow performed on 01/01/2019. Findings: Fluoroscopic evaluation of the swallowing mechanism as well as double contrast evaluation of the hypopharynx and neck region was accomplished with thick/thin barium and effervescent crystals. There is a minimal amount of aspiration with swallowing. Mucosal detail is normal. There is no hypopharyngeal mass. The esophagus has a normal primary stripping wave and normal mucosa. Small hiatal hernia is present and there is reflux noted at fluoroscopy. Fluoroscopy time: 1.2 minutes Total dose: 19.55 mGy Impression: 1. Trace amount of aspiration noted. 2. The hypopharynx is normal. 3. Small hiatal hernia with gastroesophageal reflux. Signed by: Dr. Eloy Borja DO on 01/02/2019 2:13 PM
--- NOTE | 2019-01-02 14:31 | Progress Note ---
DATE: 01/02/2019 Pulmonary Medicine Progress Note SUBJECTIVE: Ms. Jamil is seen and examined at bedside. She is slightly better. There is slightly less cough. She remains on steroids at this time. The patient is on room air FiO2. Oxygen saturation 98%. She is mobilizing with independence. REVIEW OF SYSTEMS: No bleeding. No double vision. OBJECTIVE: VITAL SIGNS: Afebrile. Vital signs noted per the chart record. GENERAL: No acute distress. Alert and calm. HEENT: Normocephalic and atraumatic. NECK: Supple. Throat midline. LUNGS: Bilateral air entry. Few rhonchi. CARDIOVASCULAR: S1 and S2. No murmurs, rubs, or gallops. ABDOMEN: Soft and nontender. EXTREMITIES: No clubbing. No cyanosis. There is no edema. INTEGUMENT: No rash or purpura. LABORATORY DATA: 20 white count, 34 hematocrit, and 411 platelets. IMPRESSION AND PLAN: 1. Bilateral pneumonia. 2. Underlying bronchiectasis with exacerbation. 3. Chronic interstitial lung disease, possible progression of the interstitial lung disease versus opportunistic infection. There has been some radiographic progression that is definite. 4. Mild anxiety. 5. Chronic kidney disease. Continue steroids at this time at a lower dose. No high reason to repeat the CBC before discharge. However, the patient remained in the hospital, we will consider rechecking. GI is evaluating the patient. We will follow along closely. MD JOVANA Orlando/MYKE /[id number]
--- NOTE | 2019-01-02 17:08 | NUR ---
Nutrition Screen Note RD Recommendation for Physician: - Diet per LITHOGRAPHIC CAMERA OPERATOR pending MBSS results Plan of Care: RD following, monitoring for tolerance and adequacy Nutrition reason for involvement: MD Consult per Dr. Dami Olivera- fatty liver, LOS- early Primary Diagnose(s): PNA, dyspnea PMH: HTN, PAD, hypercholesterolemia, chronic lung disease Ht: 61 in Wt: 137 lb BMI: 25.9 kg/m2 IBW: [address] Assessment: (01/02) 83 YOM admitted for PNA and SOB. Pt seen today per MD consult and LOS. Per hx and labs, no hx of liver disease or elevated LFTs. Pt with MBSS today, results pending. Pt with slight aspiration per chart, pt reports unable to swallow thin liquids and not being able to tolerate a full range of diet textures. LITHOGRAPHIC CAMERA OPERATOR following, therapy provided today per pt. Pt denies wt loss, reports UBW of 137#. Pt reports good appetite, however decreased po intake x 3-4 weeks due to the difficulty swallowing. Pt with diarrhea due to abx, now on probiotics. Pt with no questions at time of visit. Pt reviewed with RN. Chart reviewed. Labs and meds reviewed. Will monitor and continue to follow. Current Diet: Malnutrition Evaluation (01/02/19) The patient does not meet criteria for a specified degree of malnutrition at this time. Will re-evaluate at follow-up as appropriate. Diet Education Needs Assessment: Diet education not indicated. Nutrition Care Level: Low Signed: Janeth Rawls RD, LD, [facility]
[2019-01-02 18:30] VITALS: BP 159/73
--- NOTE | 2019-01-02 18:45 | NUR ---
Patient given discharge instructions, verbalized understanding. escorted to front of hospital in wheel chair to meet ride in front of hospital.
--- NOTE | 2019-01-02 18:47 | Consultation ---
DATE OF CONSULTATION: 01/01/2019 ADDENDUM: PHYSICAL EXAMINATION: GENERAL: The patient is awake, alert, oriented, afebrile, hemodynamically stable. NECK: Supple. No node or mass. LUNGS: She has coarse crackles bilaterally. HEART: Irregularly irregular. Occasional irregular beat. ABDOMEN: Obese, soft, nontender. No acute sign. No masses. No organomegaly. EXTREMITIES: About 1+ edema. CENTRAL NERVOUS SYSTEM: Motor function grossly intact. Reg Arana MD RD/MODL /[id number]
--- NOTE | 2019-01-02 19:45 | NUR ---
Patient discharged home forgot prescriptions for nebulizer and inhalers, called prescriptions to patient's preferred pharmacy [facility] and [place] [facility] [place] in [place].
--- NOTE | 2019-01-02 21:03 | Progress Note ---
DATE: SUBJECTIVE: Ms. Jamil today is doing fine. She is awake, alert, oriented, ready to go home. OBJECTIVE: VITAL SIGNS: Temperature 98, pulse 20, blood pressure mildly elevated at 160/65. Several issues are being addressed: 1. Her low thyroid, TSH came a little bit low. However, the patient is on thyroid supplement and Dr. Morel is following that. 2. As far as the dysphagia, she is undergoing training by the speech therapist. The barium swallow today only shows small hiatal hernia and reflux. So, for the time being, we will treat her assuming combination of problem with aspiration that speech therapist is working on that aspect and acid reflux that we will maintain her on acid pump inhibitor. 3. The other medical issue is her elevated white cell count, which remained elevated after checking for the 2nd day and that is presumably from starting on steroid. 4. The other medical issue is her blood culture is still pending. Her urinalysis is unremarkable. 5. Other medical issue is her diarrhea, but the patient reports to me today that she has not had a bowel movement since yesterday, so obviously we do not have any stool pending on her. She will be discharged home today. We will follow her as an outpatient. Reg Arana MD RD/MYKE /[id number]
[2019-01-03 01:16] LABS: ALPHA-1-ANTITRYPSIN 84 mg/dL (90-200)
--- NOTE | 2019-01-03 11:10 | Discharge Summary ---
DISCHARGE DIAGNOSES: 1. Pneumonia secondary to bronchiectasis. 2. Acute respiratory failure with hypoxia. 3. Dysphagia. HISTORY OF PRESENT ILLNESS AND HOSPITAL COURSE: See hospital chart for full details. The patient is a lady, who presented with severe cough, congestion, who was found on outpatient studies to have what appeared to be pneumonia who failed outpatient treatments, so now she is admitted for further evaluation and she was found to have a CT scan significant for bronchiectasis with pneumonia. She was seen by Dr. Prashant Cuenca of Pulmonary, where we placed the patient on broad-spectrum antibiotics. Reviewing her past history, she has obviously had bronchoscopies with biopsies in the past with no occlusion. She also complains of dysphagia, where she was seen by her GI specialist, Dr. Arana, who did a barium swallow that showed no significant obstructive lesions and he stated he could do the rest as an outpatient. Once Dr. Cuenca cleared the patient for continued outpatient medical medications, the patient is really adamant that she wanted to go home, be with her family, and follow up with the specialist and continue with the treatment aspect of her condition. I did have a long talk about her bronchiectasis, most likely to be lifelong and continue much like an adult cystic fibrosis type patient, which she understood. She is to follow up with Dr. Cuenca and Dr. Arana here in 1 to 2 weeks. Please see hospital chart for full details. MD FAZAL Solis/MYKE /[id number]
== END 2019-01-02 19:00 | disposition home or self-care (01) | DRG 193 ==
LOC: ER 16:38 → ERHOLD 20:37 → IMCU 22:35
PROVIDERS: ADMIT Internal Medicine; ATTEND Internal Medicine
DX: J15.9 Unspecified bacterial pneumonia (principal); J96.01 Acute respiratory failure with hypoxia; J47.0 Bronchiectasis with acute lower respiratory infection; J47.1 Bronchiectasis with (acute) exacerbation; I12.9 Hypertensive chronic kidney disease with stage 1 through stage 4 chronic kidney disease, or unspecified chronic kidney disease; N18.9 Chronic kidney disease, unspecified; E03.9 Hypothyroidism, unspecified; E78.5 Hyperlipidemia, unspecified; E78.00 Pure hypercholesterolemia, unspecified; Z82.49 Family history of ischemic heart disease and other diseases of the circulatory system; K21.9 Gastro-esophageal reflux disease without esophagitis; I73.9 Peripheral vascular disease, unspecified; E78.2 Mixed hyperlipidemia; I83.90 Asymptomatic varicose veins of unspecified lower extremity; K58.9 Irritable bowel syndrome, unspecified; Z77.090 Contact with and (suspected) exposure to asbestos; R13.10 Dysphagia, unspecified; R19.7 Diarrhea, unspecified; E11.22 Type 2 diabetes mellitus with diabetic chronic kidney disease; J84.10 Pulmonary fibrosis, unspecified; R53.81 Other malaise; E87.6 Hypokalemia; D72.829 Elevated white blood cell count, unspecified; F41.9 Anxiety disorder, unspecified; K44.9 Diaphragmatic hernia without obstruction or gangrene
CPT/HCPCS: 36415; 36600; 71045; 71046; 71250; 74220; 74230; 80053; 80061; 81001; 82103; 82270; 82550; 82553; 82784; 82785; 82805; 83605; 83630; 83735; 83880; 83993; 84443; 84484; 85025; 86039; 86200; 86431; 87040; 87045; 87070; 87116; 87177; 87205; 87206; 87328; 87493; 93005; 93306; 94640; 99285; J0456; J0696; J2920; J2930; J7030

== ENCOUNTER 2019-02-07 09:54 | Outpatient (RCR) | payer MEDICARE ==
--- NOTE | 2019-01-10 15:00 | NUR ---
Clinical Swallow Evaluation/Initial Treatment Session Patient is an 83 year old female with diagnosis of dysphagia and PNA. Pt participated in a modified barium swallow study on 12/30/18. Pt presented with mild to moderate pharyngeal dysphagia c/b consistent premature spillage to the level of the vallecula, trace SILENT aspiration of thin liquids, and consistent pharyngeal residue after the swallow. Chin tuck maneuver was successful in reducing or eliminating aspiration. Dysphagia was judged to be secondary to decreased pharyngeal constriction, decreased coordination of the swallow, and decreased hyolaryngeal excursion. Recommendation was made for dysphagia therapy to increase strength and coordination of swallow. Patient was seen today in the outpatient clinic for initial treatment of Neuromuscular Electrical Stimulation (NMES) with VitalStim Therapy and traditional dysphagia therapy with pharyngeal exercises. Pt was seen with no family present. Oral motor exam revealed function that was grossly within normal limits. Patient tolerates room air. Hearing appeared to be WFL. Speech and language skills were functional. Patient reported no change in her swallow skills since the modified barium swallow study. She stated she consistently uses the chin tuck maneuver but still occasionally gets choked with liquids. Provided extensive education re: basic anatomy and physiology of swallow structures, need for therapy, purpose of exercises and NMES, and future plan of care. Pt indicated understanding. Pt was given water and hard candy. Pt was instructed to take small sips and swallow hard, feeling all the muscles in her throat contract. Placement 3b was used to target the mylohyoid muscle, the anterior belly of the digastric muscle, the sternohyoid muscle, the omohyoid muscle, the geniohyoid muscle, and the middle pharyngeal constrictors. Channel 1 of the electrodes was aligned horizontally just above the hyoid bone and channel 2 of the electrodes was aligned horizontally at the level of the thyroid notch. This placement was used to improve base of tongue strength, pharyngeal constriction, and UES function. Pt initially tolerated 5.0 mA, but as the session progressed pt tolerated 14.0 mA. Pt received 45 minutes of stimulation. Cough noted X 1, throat clear X 8. During NMES an exercise program was presented, demonstrated, and discussed. Pt completed the exercises with minimal assistance. A home program was assigned. Pt verbalized understanding of the home exercise program. Education provided as indicated. All questions were answered. Impressions: Pt tolerated initial session of NMES well. She continues to report and demonstrate s/s of aspiration during meals which significantly interferes with her quality of life. Pt is an excellent candidate for dysphagia exercises and NMES for improvement of strength and coordination of swallow. Recommendations: 1.Dysphagia therapy to include traditional exercises and NMES 3X/week for 4 weeks for a total of 12 treatment sessions 2.Home exercise program 3.Repeat MBS in 4 weeks with new goals to be determined at that time Director Of Emergency Nursing Goal: Pt will tolerate least restrictive diet without s/s of aspiration as judged by an objective evaluation. Short Term Goals: 1.Pt will complete 3 repetitions of a set of dysphagia exercises to improve laryngeal elevation, base of tongue retraction, and laryngeal closure, 10 repetitions per exercise, with minimal cues. 2.Pt will tolerate NMES for 45 60 minutes with no clinical s/s of aspiration to improve strength of pharyngeal constrictors, hyolaryngeal excursion, and safety with po intake. 3.Pt will complete home dysphagia exercise program targeting laryngeal elevation, base of tongue strength, and cricopharyngeal function independently. 4.Pt will follow aspiration precautions with independence. 5.Pt will participate in a repeat Modified Barium Swallow study to objectively re-assess swallow safety and function and determine safest diet. Savannah Duncan M.A. [facility] PROVIDER Date of Session: 01/10/19 Dysphagia Evaluation X 60 minutes NOMS Rating for Swallowing: Level 6
[~2019-02-07 09:54] MED LIST changes: +ALBUTEROL2.5 MG/3 M INH; +COMP-AIR NEBUL1 EACH IH; +NEBULIZER COMPRESSOR INH; +PREDNISONE10 MG PO; +PROAIR HFA INH8.5 GM INH; +RESTASIS1 EACH OP; +Trelegy Ellipta
--- NOTE | 2019-02-09 09:27 | NUR ---
ST NOTE: Pt called in sick today, she will return Tuesday morning for her repeat MBS
== END 2019-02-09 ==
LOC: ST 09:54
PROVIDERS: ATTEND Family Medicine
DX: R13.13 Dysphagia, pharyngeal phase (principal); Z87.01 Personal history of pneumonia (recurrent)

== ENCOUNTER → 2019-02-12 | Outpatient (CLI) | payer MEDICARE ==
--- NOTE | 2019-02-12 15:34 | Diagnostic Imaging Report ---
PROCEDURE: X-RAY MODIFIED BARIUM SWALLOW COMPARISON: Modified barium swallow dated 01/01/2019. INDICATION: Dysphasia. Radiation Details: Fluoroscopy time: 53 seconds Cumulative dose: 1.5 mGy Cumulative dose area product: 54.4 cGycm2 DISCUSSION: Fluoroscopic examination was performed in conjunction with speech pathology during swallowing a variety of thin and thick liquid consistencies. Limited provided images demonstrate no laryngeal penetration or aspiration. Trace vallecular residue. CONCLUSION: Modified barium swallow demonstrating no laryngeal penetration or aspiration. Please refer to the speech pathology report for further details. Signed by: Dr. Teri Martinez MD on 02/12/2019 3:30 PM
== END ==
LOC: DX 09:38
PROVIDERS: ATTEND Family Medicine
DX: R13.13 Dysphagia, pharyngeal phase (principal); Z87.01 Personal history of pneumonia (recurrent)
CPT/HCPCS: 74230

== ENCOUNTER → 2019-06-05 | Outpatient (CLI) | payer MEDICARE ==
[~2019-06-05] MED LIST changes: +ALBUTEROL SULF 0.083% NEB SOLN 3 ML NEB ONE
--- NOTE | 2019-06-05 12:50 | Diagnostic Imaging Report ---
EXAM: CT Chest WITHOUT intravenous contrast 06/05/2019 11:58 AM INDICATION: Pneumonia, bronchiectasis COMPARISON: Chest radiograph of 01/01/2019 TECHNIQUE: Chest was scanned utilizing a multidetector helical scanner from the lung apex through the level of the adrenal glands without administration of IV contrast. Coronal and sagittal reformations were obtained. Routine protocol was performed. IV CONTRAST: None RADIATION DOSE: Total DLP: 386.1 mGy*cm. Dose modulation, iterative reconstruction, and/or weight based adjustment of the mA/kV was utilized to reduce the radiation dose to as low as reasonably achievable. COMPLICATIONS: None FINDINGS: LINES/ TUBES: None. LUNGS AND AIRWAYS: The lungs are hyperinflated. The central airways are patent. No focal consolidation. There is bilateral middle and lower lobe predominant tubular bronchiectasis with areas of geographic groundglass opacity and increased predominantly peripheral reticular opacities. No suspicious pulmonary nodules. PLEURA: Small right pleural effusion. No left pleural effusion. No pneumothorax. HEART AND MEDIASTINUM: The thyroid gland is not well seen. No supraclavicular, axillary, mediastinal, or hilar lymphadenopathy. The heart is not enlarged. No pericardial effusion. Atherosclerotic calcifications involve the coronary arteries and aorta and great vessels. UPPER ABDOMEN: Limited noncontrast images of the upper abdomen demonstrate a calcified granuloma in the hepatic dome and no other focal abnormalities of the partially visualized liver, gallbladder, spleen, pancreas, adrenals, or upper most left kidney. BONES: The visualized bony thorax is within normal limits. SOFT TISSUES: Unremarkable. IMPRESSION: Hyperinflated lungs with areas of air trapping and bilateral middle and lower lobe dominant tubular bronchiectasis with geographic groundglass opacities and increased peripheral reticular opacities. Findings are in keeping with chronic lung disease. Small right pleural effusion. Atherosclerotic arterial calcifications including of the coronary arteries. Signed by: Laurence Cameron MD on 06/05/2019 12:46 PM
--- NOTE | 2019-06-17 02:04 | Pulmonary Function Test ---
PULMONARY FUNCTION TESTING DATE OF STUDY: 06/05/2019 REFERRING PHYSICIAN: Prashant Cuenca MD SPIROMETRY: Spirometry demonstrates normal findings. FEV1 was 1.53 L or 99% predicted and FVC was 1.73 L or 90% predicted in setting of normal FEV1 over FVC ratio. After bronchodilator administration, there was no statistically significant change in spirometry. LUNG VOLUMES: Lung volumes as measured by nitrogen washout method suggest very mild restriction with a total lung capacity of 2.79 L or 60.5% predicted. DIFFUSION CAPACITY: Diffusion capacity was moderately decreased at 8.8 mL per mmHg per minute or 49% predicted. SUMMARY: Very mild restriction, moderate diffusion impairment. This may be seen in early alveolar interstitial lung disease, with components of additional disorders of hemoglobin or pulmonary vascular disorders. Clinical correlation is recommended. Prashant Cuenca MD GMN/MODL /[id number]
== END ==
LOC: CT 11:46
PROVIDERS: ATTEND Internal Medicine Critical Care Medicine
DX: J18.9 Pneumonia, unspecified organism (principal); J47.9 Bronchiectasis, uncomplicated; E88.01 Alpha-1-antitrypsin deficiency; K21.9 Gastro-esophageal reflux disease without esophagitis; Z88.9 Allergy status to unspecified drugs, medicaments and biological substances
CPT/HCPCS: 71250; 94060; 94640; 94727; 94729

== ENCOUNTER → 2019-12-18 | Outpatient (CLI) | payer MEDICARE ==
[~2019-12-18] MED LIST changes: -ALBUTEROL SULF 0.083% NEB SOLN 3 ML NEB ONE; +ASPIRIN EC81 MG PO; +LIPITOR20 MG PO; +LOPRESSOR25 MG PO; +PLAVIX75 MG PO
--- NOTE | 2019-12-18 10:33 | Diagnostic Imaging Report ---
EXAM: CT Chest WITHOUT intravenous contrast 12/18/2019 9:42 AM INDICATION: Pneumonia, bronchiectasis COMPARISON: Chest CT 06/05/2019 TECHNIQUE: Chest was scanned utilizing a multidetector helical scanner from the lung apex through the level of the adrenal glands without administration of IV contrast. Coronal and sagittal reformations were obtained. Routine protocol was performed. IV CONTRAST: None RADIATION DOSE: Total DLP: 467 mGy*cm. Dose modulation, iterative reconstruction, and/or weight based adjustment of the mA/kV was utilized to reduce the radiation dose to as low as reasonably achievable. COMPLICATIONS: None FINDINGS: LINES/ TUBES: None. LUNGS AND AIRWAYS: The central airways are patent. The lungs remain hyperinflated. No focal consolidation. Unchanged ground glass opacities in a geographic distribution may represent air trapping. Unchanged tubular bronchiectasis and peripheral reticular opacities. PLEURA: Small right pleural effusion. No left pleural effusion. HEART AND MEDIASTINUM: The thyroid gland is normal. No mediastinal, hilar or axillary lymphadenopathy. The heart is normal in size.. There is no pericardial effusion. Atherosclerotic calcifications involve the aorta, coronary arteries and proximal great vessels. UPPER ABDOMEN: No acute findings. BONES: No acute osseous injury. SOFT TISSUES: Unremarkable. IMPRESSION: Unchanged hyperinflated lungs with geographic groundglass opacities, tubular bronchiectasis, and peripheral interstitial opacities. Findings likely reflect chronic interstitial lung disease. No new consolidation. Small right pleural effusion. Signed by: Laurecne Cameron MD on 12/18/2019 10:30 AM
== END ==
LOC: CT 09:34
PROVIDERS: ATTEND Internal Medicine Critical Care Medicine
DX: J84.9 Interstitial pulmonary disease, unspecified (principal); J47.9 Bronchiectasis, uncomplicated; K21.9 Gastro-esophageal reflux disease without esophagitis; E88.01 Alpha-1-antitrypsin deficiency; Z88.9 Allergy status to unspecified drugs, medicaments and biological substances
CPT/HCPCS: 71250

== ENCOUNTER 2020-01-05 08:16 | Inpatient (IN) | payer MEDICARE, OTHER ==
[~2020-01-05] VITALS: Ht 154.9 cm; Wt 64.4 kg
[2020-01-05] VITALS (19 sets, daily range): BP systolic 85–194; BP diastolic 31–103
[~2020-01-05 08:16] MED LIST changes: -ASPIRIN EC81 MG PO; -LIPITOR20 MG PO; -LOPRESSOR25 MG PO; -PLAVIX75 MG PO
[2020-01-05] MEDS ORDERED: ACETAMINOPHEN 325 MG TAB PO ONE ×2 (08:45→09:30)
[2020-01-05] MEDS ORDERED: NITROGLYCERIN 2% OINT 1 GM PKT TOP ONE (08:45)
[2020-01-05] MEDS ORDERED: ASPIRIN 81 MG CHEW TAB PO ONE ×3 (08:45→09:45)
[2020-01-05 08:54] LABS: BASOPHILS # (AUTO) 0.1 (0.0-0.1); BASOPHILS % 0.5 % (0.0-1.0); EOSINOPHILS # (AUTO) 0.3 (0.0-0.4); HEMATOCRIT 41.4 % (34.2-44.1); HEMOGLOBIN 13.8 g/dL (12.0-16.0); LYMPHOCYTES # (AUTO) 2.7 (1.0-3.2); LYMPHOCYTES % 24.1 % (18.0-39.1); MEAN CORPUSCULAR HGB CONC 33.3 g/dL (31-35); MONOCYTES # (AUTO) 0.8 (0.2-0.8); MONOCYTES % 7.5 % (4.4-11.3); NEUTROPHILS # (AUTO) 7.1 (2.1-6.9); NEUTROPHILS % 64.6 % (38.7-80.0); PLATELET COUNT 362 x10e3/uL (140-360); RED BLOOD COUNT 4.76 x10e6/uL (3.6-5.1); RED CELL DISTRIBUTION WIDTH 13.1 % (11.7-14.4)
[2020-01-05 09:04] LABS: INR 0.88; PARTIAL THROMBOPLASTIN TIME 27.5 seconds (23.8-35.5); PROTHROMBIN TIME 12.5 seconds (11.9-14.5)
[2020-01-05 09:14] LABS: ALBUMIN 3.8 g/dL (3.5-5.0); ALBUMIN/GLOBULIN RATIO 1.1 (0.8-2.0); ANION GAP 16.7 mmol/L (8-16); CALCIUM 9.9 mg/dL (8.4-10.2); CREATININE, SERUM 1.23 mg/dL (0.57-1.11); POTASSIUM 3.7 mmol/L (3.5-5.1)
--- NOTE | 2020-01-05 09:15 | NUR ---
PATIENT ATTEMPTED TO URINATE AND SPILLED URINE IN TOILET. REFUSED STRAIGHT CATH
[2020-01-05 09:20] LABS: CREATINE KINASE MB 22.5 ng/mL (0-5.0)
[2020-01-05] MEDS ORDERED: ACETAMINOPHEN 325 MG TAB ONE (09:25)
[2020-01-05] MEDS ORDERED: ASPIRIN 81 MG ENTERIC COATED PO ONE (09:25)
[2020-01-05] MEDS ORDERED: CLOPIDOGREL BISULFATE 75 MG TAB PO ONE (09:45)
--- NOTE | 2020-01-05 09:49 | Diagnostic Imaging Report ---
EXAMINATION: CHEST SINGLE (PORTABLE) COMPARISON: CT chest 12/18/2019 INDICATION: Right-sided chest pain ^right-sided CP DISCUSSION: Frontal view of the chest obtained at 0929 hours. HEART AND MEDIASTINUM: The cardiomediastinal silhouette is unremarkable. LINES: None. LUNGS: Mild hyperinflation. Trace prominence of the pulmonary interstitium in the mid and lower lung zones are stable. No pneumonia or pulmonary edema. PLEURA: No pleural effusion or pneumothorax. BONES AND SOFT TISSUES: No focal osseous lesion. The soft tissues are normal. IMPRESSION: No acute cardiopulmonary disease. Stable prominence of the pulmonary interstitium suggestive of interstitial lung disease. Signed by: Dr. Tami Patel MD on 01/05/2020 9:46 AM
[2020-01-05] MEDS ORDERED: MORPHINE SULFATE 2 MG/ML SYR 1ML IV PRN (10:00)
[2020-01-05] MEDS ORDERED: ONDANSETRON HCL INJ 2MG/ML 2ML 2 MG/ML VIAL IV PRN (10:00)
--- NOTE | 2020-01-05 10:08 | NUR ---
DR. SALDAÑA AT BEDSIDE SPEAKING WITH PATIENT
[2020-01-05] MEDS ORDERED: EPTIFIBATIDE 75mg 100ML 100 ML IV SCH (10:15)
--- NOTE | 2020-01-05 10:15 | NUR ---
DR. SALDAÑA CALLED DARRYL LIMCORPORATE STRATEGY ANALYST REGARDING PATIENT GOING TO AIRCRAFT CYLINDER MECHANIC
[2020-01-05] MEDS ORDERED: EPTIFIBATIDE 10 ML ONE (10:25)
[2020-01-05] MEDS: METOPROLOL TARTRATE 25 MG TAB PO SCH ×3 (10:32→22:06)
[2020-01-05] MEDS ORDERED: MIDAZOLAM HCL 2 MG/2 ML VIAL ONE (10:47)
[2020-01-05] MEDS ORDERED: VERAPAMIL HCL 2.5 MG/ML 2 ML VIAL ONE (10:47)
[2020-01-05] MEDS ORDERED: FENTANYL CITRATE/PF 100MCG/2 ML INJ ONE (10:47)
[2020-01-05] MEDS ORDERED: HEPARIN SOD (PORCINE) 1000 UNIT/ML 30ML ONE (10:47)
[2020-01-05] MEDS ORDERED: SODIUM CHLORIDE 0.9% 1000ML 1,000 ML ONE ×2 (10:48→10:51)
[2020-01-05] MEDS ORDERED: HEPARIN SOD/SOD CHLORIDE 2,000 ML ONE (10:48)
[2020-01-05] MEDS ORDERED: IOPAMIDOL 370 MG/ML 200 ML INFUS..BTL INJ ONE ×2 (10:48→11:49)
[2020-01-05] MEDS ORDERED: LIDOCAINE HCL 2% LOCAL 20 ML VIAL ONE (10:48)
[2020-01-05] MEDS ORDERED: NITROGLYCERIN/D5W 200 MCG/ML 250 ML ONE (10:48)
[2020-01-05] MEDS ORDERED: EPTIFIBATIDE 2 MG/1 ML 10ML VIAL IV ONE (11:00)
--- NOTE | 2020-01-05 11:00 | NUR ---
DR. Dami ROMERO AT BEDSIDE SPEAKING WITH PATIENT. CONSENT FORM FOR HOME HEALTH CAREGIVER SIGNED
[2020-01-05] MEDS: FAMOTIDINE 20 MG/2 ML VIAL IV SCH ×2 (11:01→22:06)
--- NOTE | 2020-01-05 11:05 | NUR ---
REPORT TO LAPPING MACHINE SET UP OPERATOR. PATIENT CALLED HER FAMILY AND LEFT A MESSAGE THAT SHE WOULD CALL THEM WHEN SHE GETS TO A ROOM AFTER PROCEDURE
[2020-01-05] MEDS ORDERED: SODIUM CHLORIDE 0.9% 50ML 50 ML ONE (11:40)
[2020-01-05] MEDS ORDERED: BIVALRIUDIN 250 MG/VIAL VIAL IV ONE (11:40)
[2020-01-05] MEDS ORDERED: HYDRALAZINE HCL 20 MG/ML VIAL IV PRN (12:30)
[2020-01-05] MEDS ORDERED: ZOLPIDEM TARTRATE 5 MG TAB PO PRN (12:30)
[2020-01-05] MEDS ORDERED: ACETAMINOPHEN 325 MG TAB PO PRN (12:30)
[2020-01-05] MEDS: VALSARTAN 160 MG TAB PO SCH (14:04)
[2020-01-05] MEDS: SODIUM CHLORIDE 0.9% 1000ML 1,000 ML IV SCH ×2 (14:04→23:15)
--- NOTE | 2020-01-05 14:06 | Operative Report ---
DATE OF PROCEDURE: 01/05/2020 SURGEON: Marian Gleason MD TITLE OF PROCEDURE: 1. Left cardiac catheterization. 2. PCI and stenting of the right coronary artery. 3. Abdominal angiogram. INDICATIONS: 1. Acute myocardial infarction with new left bundle-branch block, non- STEMI/STEMI. 2. Peripheral arterial vascular disease. TECHNICAL DETAILS: The patient came to the emergency room with severe chest pain on and off since yesterday. Her EKG showed left bundle-branch block. Her troponin came back positive at 2. The patient continued to have chest pain on and off in the ER, so ER physician called me. We elected to load her with Plavix, started Integrilin intravenously and took her to the concrete plant laborer. After the usual sterile preparation and draping procedure, intravenous Versed and fentanyl given for sedation, local xylocaine for local anesthesia. The axis was left common femoral artery because the pulse looks better than the right common femoral. A 4-Guatemalan sheath was established in place. The JL4 and 3DRC catheter to engage the coronary. Of note, the wire will go to the other side other than going into the distal abdominal aorta. For that reason, all the exchanges after that time was done using long exchange wire and at the end we did abdominal angiogram. Following the cardiac catheterization, it was evident the patient having myocardial infarction with subtotal long RCA, very large and anomalous. For that reason, we upgraded the sheath to 6-Guatemalan sheath. Our guiding catheter was 3DRC. We ballooned it. We gave Angiomax in the usual dosage. The patient already on Integrilin. We ballooned it with 2.25 x 20 balloon. Subsequently, stent was 2.5 x 30 up to 15 atmospheres. Repeated angiogram showed good results. At that time, attention was made to the left ventricle with left ventriculogram was done in the right anterior oblique view. Subsequently, the abdominal angiogram was done. The closure device was used, Minx applied successfully. There were no complications and minimal blood loss. RESULTS: Coronary angiogram: 1. Left main: Left main free of disease. 2. LAD: 40% ostial disease and several plaques at 40%. 3. Ramus: Small artery. 4. Circumflex coronary artery: Large artery with 40% disease. 5. 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 Hemodynamics: Aorta pressure 150/80, LV pressure 150/20. Abdominal angiogram showed 60% distal abdominal aorta with calcified iliacs and artery. PCI procedure: Guiding catheter is 3DRC. Angiomax and Integrilin. Ballon 2.25 x 20, stenting 2.5 x 30 Resolute [place] up to 15 atmospheres lesion prior to intervention at 99% long lesion, following intervention at 0%. COMPLICATIONS: None. BLOOD LOSS: None. MD EMERALD Perez/DAVL /[id number] MTDD
--- NOTE | 2020-01-05 14:52 | Consultation ---
DATE OF CONSULTATION: 01/05/2020 REASON FOR CONSULTATION: Chest pain, elevated troponin, new-onset left bundle-branch block. HISTORY OF PRESENT ILLNESS: Ms. Jamil is an 84-year-old lady known to us with a past medical history of hypertension, hypercholesteremia, intolerant to statin therapy, peripheral vascular disease with a prior history of right lower extremity revascularization, [id number] CAD on all her previous heart catheterizations. The patient presents to this institution with a 2-day episode of worsening chest pain. She describes that the pain as substernal, sharp to dull ache, severe in nature, waxing and waning with increasing frequency over the past 2 days. She came into the emergency room with severe relentless substernal chest pain that has been ongoing for 2 hours in duration and EKG was checked showing a left bundle-branch block. Labs, which were checked, noted to be abnormal with a troponin of 1.69 and a CK-MB of 22.5 affectively consistent with a diagnosis of an acute non-ST elevation myocardial infarction. Due to ongoing symptoms, public works laborer is emergently activated for emergent heart catheterization. The patient denies having pains like this before. PAST MEDICAL HISTORY: 1. Hypertension, essential. 2. Hypothyroidism. 3. Hypercholesteremia. 4. PAD with prior history of right lower extremity revascularization in June 2018 for 100% occluded distal right SFA. 5. Chronic migraines. 6. Chronic constipation from IBS. 7. Statin intolerance. 8. Mild CKD. 9. History of H. pylori/GERD. PAST SURGICAL HISTORY: 1. Appendectomy in 1941. 2. Hysterectomy in 2003. 3. Bladder repair surgery in 2003. 4. Lower back surgery 2004. 5. Cystocele repair in 2005. FAMILY HISTORY: Mother at 88 with Parkinson disease and had heart problems. Father , heart problems. SOCIAL HISTORY: She is . She denies smoking. Denies any illicit drug use or alcohol use. ALLERGIES: INCLUDE DEMEROL CAUSES EXTREME STOMACH PAIN, ASPIRIN CAN CAUSE ULCERS, MYRBETRIQ CAUSES MUSCLE ACHES, STATINS CAUSE MUSCLE ACHES, AND AMLODIPINE CAUSES LEG EDEMA. HOME MEDICATIONS: Include Plavix 75 mg daily, Lasix 20 mg daily, Synthroid 75 mcg daily, probiotic tablet daily, centrum multivitamin daily, calcium with vitamin D tablet daily, acetaminophen p.r.n., Flonase 50 mcg intranasal spray daily, latanoprost at bedtime eyedrops, milk of magnesia, Turmeric, duloxetine 30 mg daily, Zyrtec 10 mg daily p.r.n., Toprol-XL 25 mg daily, Diovan 320 mg daily. REVIEW OF SYSTEMS: GENERAL: Denies any fevers or chills. Positive for fatigue and malaise. HEENT: Occasional headaches. No visual complaints, sore throat, or stuffy nose. RESPIRATORY: Denies any pleuritic chest pain. Does have shortness of breath. CARDIOVASCULAR: Chest pain as per HPI. GI: Denies any abdominal pain. Positive for nausea. No bright red blood per rectum, melena, or hematemesis. : Denies any dysuria or pyuria. MUSCULOSKELETAL: Has chronic aches and pains in her legs. No swelling. ENDOCRINE: Denies any heat or cold intolerance. ID: Denies any infectious issues. NEUROLOGIC: Denies any focal weakness, numbness, tingling, or seizures. Does have some radicular back pain that radiates to her legs at times. The remainder of review of systems negative, otherwise mentioned. PHYSICAL EXAMINATION: VITAL SIGNS: Height of 61 inches, weight of 142 pounds, BMI of 26.8, temperature of 98.3, pulse of 82, respiratory rate of 20, blood pressure 155/88, and O2 saturation 96% on 2 L nasal cannula. General: This is an elderly lady, who is currently in moderate distress due to ongoing chest pain. HEENT: Normocephalic and atraumatic. Pupils are equal, round, and reactive to light. Extraocular movements are intact. Oropharynx is clear. NECK: No elevation of jugular venous pulsation. No carotid bruits. CARDIOVASCULAR: Regular rate and rhythm. Normal S1, S2. 3/6 systolic murmur at the right upper sternal border. LUNGS: Show [id number] decreased air flow throughout lung mccormack. ABDOMEN: Soft, nontender, nondistended. Normoactive bowel sounds. No hepatosplenomegaly. BACK: No costovertebral angle tenderness. EXTREMITIES: Warm with zero to 1+ femoral pulses, slightly better in the left leg, scattered reticular veins. SKIN: No breakdowns or ulcers. NEUROLOGIC: Alert and oriented x3. Cranial nerves II through XII are intact. Strength seems to be preserved. PSYCHIATRIC: Anxious, but normal fluent speech. Appropriate affect. No delusions. LABORATORY DATA: White count of 11.1, hemoglobin 13.8, hematocrit 41.4, and platelets of 362. Sodium 141, potassium 3.7, chloride 104, bicarb 24, BUN 21, creatinine 1.23, glucose of 121, calcium 9.9, AST 30, ALT 17, alkaline phosphatase 58, total protein 7.4, albumin of 3.8. Troponin is 1.69 with an MB of 22.5, INR is 0.88. Coronavirus testing is pending. Chest x-ray shows pulmonary interstitial infiltrates, could be pulmonary edema. EKG reveals sinus rhythm with first-degree AV block and left bundle-branch block. This is not noted on previous EKGs from the office, which shows narrow complex QRS. DIAGNOSES: 1. Acute myocardial infarction with new-onset left bundle-branch block, currently with ongoing symptoms, high-risk ACS. 2. Hypertension. 3. Hypercholesteremia with statin intolerance. 4. Peripheral artery disease with prior history of right lower extremity revascularization. PLAN/RECOMMENDATIONS: 1. manager labor delivery has been activated for emergent heart catheterization. We will go ahead and reload with Plavix and aspirin therapy. We will continue beta yanet therapy with caution and titrate antihypertensive therapy. 2. We will consider retrial of statin therapy, but has had previous severe myalgias in the past to them and has historically intolerated multiple different versions. 3. ICU admission post cardiac catheterization. 4. Further plan/recommendations to follow in this very old lady. MD LETICIA Penaloza/MYKE /[id number]
[2020-01-05] MEDS ORDERED: HYDROCODONE/APAP 5MG-325MG TAB PO PRN (16:00)
--- NOTE | 2020-01-05 18:45 | NUR ---
Report received. Assumed care. Assessment done. See interventions. IV of NS @ 100ml/hr. Right groin puncture site c/d/i with no hematoma.
--- NOTE | 2020-01-05 19:31 | NUR ---
IV to left hand partially out and very tender to touch. Dcd with catheter intact. Pressure held x 10 min.
[2020-01-05] MEDS ORDERED: ATORVASTATIN 20 MG TAB PO SCH (21:00)
[2020-01-06] VITALS (13 sets, daily range): BP systolic 102–153; BP diastolic 5–71
[2020-01-06 01:25] LABS: CREATINE KINASE MB 26.6 ng/mL (0-5.0)
--- NOTE | 2020-01-06 05:00 | NUR ---
Purewick external catheter replaced.
[2020-01-06 05:28] LABS: BASOPHILS % 0.3 % (0.0-1.0); EOSINOPHILS # (AUTO) 0.2 (0.0-0.4); EOSINOPHILS % 1.8 % (0.0-6.0); HEMATOCRIT 33.9 % (34.2-44.1); LYMPHOCYTES # (AUTO) 2.2 (1.0-3.2); LYMPHOCYTES % 21.9 % (18.0-39.1); MEAN CORPUSCULAR HEMOGLOBIN 28.7 pg (28-32); MEAN CORPUSCULAR HGB CONC 32.4 g/dL (31-35); MEAN CORPUSCULAR VOLUME 88.5 fL (81-99); MONOCYTES # (AUTO) 0.9 (0.2-0.8); MONOCYTES % 9.2 % (4.4-11.3); NEUTROPHILS # (AUTO) 6.7 (2.1-6.9); NEUTROPHILS % 66.5 % (38.7-80.0); PLATELET COUNT 313 x10e3/uL (140-360); RED BLOOD COUNT 3.83 x10e6/uL (3.6-5.1); RED CELL DISTRIBUTION WIDTH 13.9 % (11.7-14.4)
[2020-01-06 05:54] LABS: ALBUMIN 3.1 g/dL (3.5-5.0); ALBUMIN/GLOBULIN RATIO 1.1 (0.8-2.0); ANION GAP 11.9 mmol/L (8-16); CALCIUM 8.9 mg/dL (8.4-10.2); CHOL/HDL RATIO 7.5 (3.0-3.6); CREATININE, SERUM 1.17 mg/dL (0.57-1.11); POTASSIUM 3.9 mmol/L (3.5-5.1)
[2020-01-06] MEDS ORDERED: LEVOTHYROXINE SODIUM 75 MCG TAB PO SCH (06:00)
[2020-01-06 06:15] LABS: CREATINE KINASE MB 16.1 ng/mL (0-5.0)
[2020-01-06] MEDS: VALSARTAN 160 MG TAB PO SCH (08:34)
[2020-01-06] MEDS: METOPROLOL TARTRATE 25 MG TAB PO SCH (08:35)
[2020-01-06] MEDS ORDERED: CLOPIDOGREL BISULFATE 75 MG TAB PO SCH (09:00)
[2020-01-06] MEDS ORDERED: ASPIRIN 81 MG ENTERIC COATED PO SCH (09:00)
[2020-01-06] MEDS ORDERED: TRELEGY ELLIPTA SCH (09:00)
[2020-01-06] MEDS ORDERED: ASPIRIN EC81 MG PO (09:59)
[2020-01-06] MEDS ORDERED: LOPRESSOR25 MG PO (09:59)
[2020-01-06] MEDS ORDERED: PLAVIX75 MG PO (09:59)
[2020-01-06] MEDS ORDERED: BENZONATATE 100 MG CAP PO PRN (10:00)
[2020-01-06] MEDS ORDERED: LIPITOR20 MG PO (10:01)
[2020-01-06] MEDS ORDERED: BENZONATATE 100 MG CAP PO ONE (10:30)
--- NOTE | 2020-01-06 19:00 | Discharge Summary ---
ADMISSION DIAGNOSES: 1. Mfc-RF-xwtifsgum myocardial infarction. 2. Hypertension. 3. Hyperlipidemia. 4. Hypothyroidism. 5. Acute kidney injury. DISCHARGE DIAGNOSES: 1. Mzq-UT-oleogabxs myocardial infarction. 2. Hypertension. 3. Hyperlipidemia. 4. Hypothyroidism. 5. Acute kidney injury. 6. RCA stent. HISTORY: Hypertension, hyperlipidemia, hypothyroidism, glaucoma, IBS, PVD, and spondylosis of the spine. SURGICAL HISTORY: Hysterectomy, appendectomy, T and A, hernia repair, and bladder sling. FAMILY HISTORY: The patient's brother, aunt, grandpa, and great aunt had cancer. The patient's mom had a heart attack and a stroke. SOCIAL HISTORY: Noncontributory. HOSPITAL COURSE: An 84-year-old female admits with complaints of sharp constant chest pain across her chest that began yesterday around 5:30 a.m. while getting out of bed to see her cat. She thought it was acid reflux, so she took Gas-X and drank a Coke, which normally helps. She knew she had to come to the ER when either of those things helped. She denies dizziness and diaphoresis. On admission, the initial troponin was 1.69. Cardiology was consulted. EKG showed sinus rhythm with first-degree AV block. Chest x-ray was negative. The patient was taken to the engineering laboratory technician emergently and was found to have a 99% occlusion to the RCA. A stent was placed and the patient had abdominal angiogram. The patient is ready to discharge home per Cardiology recommendation. The heart cath showed an EF of 45%. She will resume home medicine and will start new prescriptions for aspirin, Plavix, and metoprolol q.12. She was given a prescription for Lipitor, but per Cardiology who has a long history with the patient, she usually gets muscle pain so she may not take it very long. She was instructed to follow up with Cardiology sometime this week and primary care in 1 to 2 weeks. The patient understands discharge instructions and agrees to plan. Dictated by Yue Mchugh NP MD SULEIMAN Serna/DAVL /[id number]
== END 2020-01-06 12:15 | disposition home or self-care (01) | DRG 247 ==
LOC: ER 08:16 → ERHOLD 09:47 → ICU 12:31
PROVIDERS: ADMIT Internal Medicine; ATTEND Internal Medicine
PROC: 027034Z Dilation of Coronary Artery, One Artery with Drug-eluting Intraluminal Device, Percutaneous Approach (ICD-10-PCS; principal; 2020-01-05)
PROC: B2151ZZ Fluoroscopy of Left Heart using Low Osmolar Contrast (ICD-10-PCS; 2020-01-05)
PROC: B2111ZZ Fluoroscopy of Multiple Coronary Arteries using Low Osmolar Contrast (ICD-10-PCS; 2020-01-05)
PROC: 4A023N7 Measurement of Cardiac Sampling and Pressure, Left Heart, Percutaneous Approach (ICD-10-PCS; 2020-01-05)
DX: I21.4 Non-ST elevation (NSTEMI) myocardial infarction (principal); N17.9 Acute kidney failure, unspecified; I25.119 Atherosclerotic heart disease of native coronary artery with unspecified angina pectoris; I44.7 Left bundle-branch block, unspecified; I12.9 Hypertensive chronic kidney disease with stage 1 through stage 4 chronic kidney disease, or unspecified chronic kidney disease; N18.9 Chronic kidney disease, unspecified; E78.5 Hyperlipidemia, unspecified; E03.9 Hypothyroidism, unspecified; K58.1 Irritable bowel syndrome with constipation; I73.9 Peripheral vascular disease, unspecified; Z95.820 Peripheral vascular angioplasty status with implants and grafts; Z82.49 Family history of ischemic heart disease and other diseases of the circulatory system; Z88.5 Allergy status to narcotic agent; Z88.8 Allergy status to other drugs, medicaments and biological substances; Z80.9 Family history of malignant neoplasm, unspecified; Z82.3 Family history of stroke; E78.00 Pure hypercholesterolemia, unspecified; H40.9 Unspecified glaucoma; M47.9 Spondylosis, unspecified; Z90.49 Acquired absence of other specified parts of digestive tract; Z90.710 Acquired absence of both cervix and uterus; Z98.890 Other specified postprocedural states
CPT/HCPCS: 36415; 71045; 75605; 80053; 80061; 82550; 82553; 83735; 84484; 85025; 85610; 85730; 87635; 92928; 93005; 93458; 99152; 99153; 99285; C1760; C1766; C1769; C1876; J0360; J0583; J1327; J1644; J2001; J2250; J2405; J3010; J7030; Q9967

== ENCOUNTER → 2020-01-25 | Outpatient (CLI) | payer MEDICARE ==
[~2020-01-25] MED LIST changes: +ASPIRIN EC81 MG PO; +LIPITOR20 MG PO; +LOPRESSOR25 MG PO; +PLAVIX75 MG PO
== END ==
LOC: RESP 11:06
PROVIDERS: ATTEND Family Medicine
DX: J84.9 Interstitial pulmonary disease, unspecified (principal); J47.9 Bronchiectasis, uncomplicated; E88.01 Alpha-1-antitrypsin deficiency; K21.9 Gastro-esophageal reflux disease without esophagitis; Z88.9 Allergy status to unspecified drugs, medicaments and biological substances
CPT/HCPCS: 94010; 94727; 94729